=== PATIENT | female | born 1955 | race Caucasian/White ===

== ENCOUNTER → 2016-11-04 | Outpatient (CLI) | payer BC ==
[~2016-11-04] MED LIST: B-COTAB53 PO; CALC600T9 PO; CONJ.6255 PO; FLUO20CA35 PO; HYDR-5688 PO; LEVO100T7 PO; LEVO112T4 PO; LUTE15CA PO; MULT-506 PO
== END | disposition home or self-care (01) ==
LOC: C.PAPS 11:31
PROVIDERS: ATTEND Obstetrics & Gynecology
DX: Z01.419 Encounter for gynecological examination (general) (routine) without abnormal findings (principal)

== ENCOUNTER → 2017-01-27 | Outpatient (CLI) | payer BC ==
--- NOTE | 2017-01-27 09:40 | DIAGNOSTIC IMAGING REPORT ---
RIGHT HAND MIN 3 VIEWS CLINICAL HISTORY: BILATERAL THUMB PAIN Right COMPARISON: None. DISCUSSION: Moderate degenerative change first carpometacarpal joint. Mild degenerative change of the interphalangeal joints throughout. Bony alignment is anatomic. No evidence for abnormal depressed reaction. No significant periarticular osteopenia. There is no evidence for soft tissue swelling. IMPRESSION: Moderate degenerative change considered most prominent at the first carpometacarpal joint. Electronically signed by: Jos Patel M.D. 01/27/2017 9:39 AM Dictated Date/Time: 01/27/2017 9:38 AM
--- NOTE | 2017-01-27 09:41 | DIAGNOSTIC IMAGING REPORT ---
LEFT HAND MIN 3 VIEWS CLINICAL HISTORY: Left hand and thumb pain COMPARISON: None. 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 There is an old chip fracture arising from the dorsal base of the distal phalanx of the third finger. There is mild osteopenia. There are no acute fractures or dislocations. IMPRESSION: Mild degenerative change. No acute fractures. Electronically signed by: Levy Mcmullen M.D. 01/27/2017 9:39 AM Dictated Date/Time: 01/27/2017 9:39 AM
== END | disposition home or self-care (01) ==
LOC: C.RDSM 09:27
PROVIDERS: ATTEND Family Medicine
DX: M79.641 Pain in right hand (principal); M79.642 Pain in left hand

== ENCOUNTER → 2017-09-19 | Outpatient (CLI) | payer BC ==
[~2017-09-19] MED LIST changes: -HYDR-5688 PO
--- NOTE | 2017-09-19 15:32 | MAMMOGRAPHY REPORT ---
BILATERAL DIGITAL SCREENING MAMMOGRAM WITH CAD: 09/19/2017 CLINICAL HISTORY: Routine screening. Patient has no complaints. TECHNIQUE: Current study was also evaluated with a Computer Aided Detection (CAD) system. Bilateral CC and MLO views were obtained. COMPARISON: Comparison is made to exams dated: 09/18/2016 mammogram, 09/14/2015 mammogram, 4 mammogram, 09/09/2013 mammogram, 09/08/2012 mammogram, and 09/06/2011 mammogram - [facility]. BREAST COMPOSITION: The tissue of both breasts is heterogeneously dense, which may obscure small mas ses. FINDINGS: No suspicious masses, calcifications, or areas of architectural distortion are noted in ei ther breast. There has been no significant interval change compared to prior exams. IMPRESSION: ACR BI-RADS CATEGORY 1: NEGATIVE There is no mammographic evidence of malignancy. A 1 year screening mammogram is recommended. The pa tient will receive written notification of the results. Approximately 10% of breast cancers are not detected with mammography. A negative mammographic report should not delay biopsy if a clinically suggestive mass is present. Kori Guzman M.D. /:09/19/2017 14:45:26 Chief Human Resources Officer: Glenys GARCIA(Lois)(Joelle)([place]), [facility] letter sent: Normal 1/2 BI-RADS Code: ACR BI-RADS Category 1: Negative
== END | disposition home or self-care (01) ==
LOC: C.MAMM 10:44
PROVIDERS: ATTEND Obstetrics & Gynecology
DX: Z12.31 Encounter for screening mammogram for malignant neoplasm of breast (principal)

== ENCOUNTER → 2017-11-14 | Outpatient (CLI) | payer OTHER | END | disposition home or self-care (01) | LOC: C.PAPS 12:46 | PROVIDERS: ATTEND Obstetrics & Gynecology | DX: Z12.4 Encounter for screening for malignant neoplasm of cervix (principal) ==

== ENCOUNTER → 2018-01-26 | Outpatient (CLI) | payer OTHER | END | disposition home or self-care (01) | LOC: C.MAMM 09:48 | PROVIDERS: ATTEND Internal Medicine | DX: M85.851 Other specified disorders of bone density and structure, right thigh (principal); M85.852 Other specified disorders of bone density and structure, left thigh ==